=== PATIENT | male | born 1995 | race Caucasian/White ===

== ENCOUNTER 2021-07-01 06:25 | Emergency (ER) | payer BC ==
[~2021-07-01] VITALS: Ht 172.7 cm; Wt 78.1 kg
[2021-07-01 06:34] VITALS: BP 122/80
== END 2021-07-01 08:03 ==
LOC: ED 07:15
DX: U07.1 COVID-19 (principal); J06.9 Acute upper respiratory infection, unspecified; R05 Cough; J45.909 Unspecified asthma, uncomplicated
CPT/HCPCS: 71045; 99284; U0003; U0005

== ENCOUNTER 2021-07-03 21:43 | Emergency (ER) | payer BC ==
[~2021-07-03] VITALS: Ht 172.7 cm; Wt 79.0 kg
--- NOTE | 2021-07-04 00:08 | NUR ---
CC OF RIGHT SIDE CP 6/10 FOR 2 DAYS, PT STATES PAIN WAS COMING AND GOING BUT IS WORSE NOW. PT IS COVID +. C/O NAUSEA.
[2021-07-04] MEDS ORDERED: DEXAMETHASONE 4 MG TABLET PO ONE (01:00)
[2021-07-04] MEDS ORDERED: ALBUTEROL/IPRATROPIUM 2.5MG/0.5MG, 3 ML NPPB ONE (01:00)
[2021-07-04] MEDS ORDERED: ALBUTEROL/IPRATROPIUM 2.5MG/0.5MG, 3 ML ONE (01:02)
[2021-07-04] MEDS ORDERED: DEXAMETHASONE 4 MG TABLET ONE (01:02)
[2021-07-04 01:30] VITALS: BP 140/87
--- NOTE | 2021-07-04 01:48 | NUR ---
REPORTS FELLING "A LITTLE BETTER" AFTER BREATHING TX.
== END 2021-07-04 02:39 | disposition home or self-care (01) ==
LOC: ED 23:46
DX: U07.1 COVID-19 (principal); J12.82 Pneumonia due to coronavirus disease 2019; R07.89 Other chest pain; R06.00 Dyspnea, unspecified; J45.909 Unspecified asthma, uncomplicated
CPT/HCPCS: 71045; 93005; 94640; 99283